=== PATIENT | female | born 1995 | race Two or more races ===

== ENCOUNTER → 2024-07-12 11:11 | Outpatient (REF) | payer OTHER, SELFPAY ==
[2024-07-12 12:46] LABS: Rubella Positive
[2024-07-12 13:23] LABS: Hepatitis B Surface Antibody Positive
[2024-07-14 13:42] LABS: Quantiferon Mitogen minus NIL 9.94 IU/mL; Quantiferon NIL 0.06 IU/mL; Quantiferon Plus TB1 minus NIL 1.67 IU/mL (<=0.34); Quantiferon Plus TB2 minus NIL 1.51 IU/mL (<=0.34); Quantiferon TB Gold Plus Positive (Negative)
== END ==
LOC: OHS 11:11
PROVIDERS: ATTENDING PHYSICIAN Nurse Practitioner Family
DX: Z23 Encounter for immunization (principal); Z13.9 Encounter for screening, unspecified
CPT/HCPCS: 36415; 71046; 86480; 86706; 86735; 86762; 86765; 86787